=== PATIENT | female | born 1945 | race Hispanic/Latino ===

== ENCOUNTER 2019-08-12 17:34 | Inpatient (IN) | payer SELFPAY ==
[~2019-08-12 17:34] MED LIST: Iopamidol-370 76% 500 ML 1 ML ONE
[2019-08-12 18:10] LABS: #Basophils 0.1 thou/uL (0.0-0.2); #Eosinphils 0.1 thou/uL (0.0-0.7); #Lymphocytes 1.8 thou/uL (1.20-3.40); #Monocytes 0.9 thou/uL (0.11-0.59); #Neutrophils 6.6 thou/uL (1.40-6.50); %Basophils 0.7 % (0.0-1.0); %Eosinophils 1.2 % (0.0-10.0); %Neutrophils 70.1 % (42.0-75.0); Hemoglobin 11.9 g/dL (12.0-16.0); Mean Corpuscular HGB CONC 33.1 g/dL (32.0-36.0); Mean Corpuscular Volume 87.6 fL (78.0-98.0); Mean Platelet Volume 6.3 fL (7.4-10.4); Platelet Count 301 thou/uL (130-400); RBC Distribution Width 13.5 % (11.5-14.5); Red Blood Cell (RBC) Count 4.11 mill/uL (4.20-5.40); White Blood Cell (WBC) Count 9.4 thou/uL (4.8-10.8)
--- NOTE | 2019-08-12 18:49 | ULT ---
US Gallbladder RUQ History: Right upper quadrant pain Comparison: None. Findings: Real-time grayscale and color evaluation right upper quadrant was performed. Pancreas aorta and IVC are obscured. Liver measures 13.3 cm in length. Gallbladder wall thickness is normal. Sonographic Angelo sign is negative. Common bile duct is normal measuring 3 mm. Cholelithiasis without cholecystitis. No pericholecystic fluid. Portal vein is patent with antegrade flow. Right kidney measures 8.3 x 3.9 x 5 cm without mass hydronephrosis or abnormal calcifications. Impression: Cholelithiasis without cholecystitis.
[2019-08-12] MEDS ORDERED: Morphine 4 MG/ML VIAL ONE (18:53)
[2019-08-12 18:58] LABS: ALT (SGPT) 42 U/L (8-55); AST (SGOT) 104 U/L (5-34); Albumin 3.8 g/dL (3.4-4.8); Alkaline Phosphatase 175 U/L (40-110); Anion Gap 13 mmol/L (10-20); BUN (Urea Nitrogen) 16 mg/dL (9.8-20.1); Bilirubin, Total 1.1 mg/dL (0.2-1.2); Calc. Creatinine Clearance 0 mL/min (70-130); Calcium 9.1 mg/dL (7.8-10.44); Carbon Dioxide 22 mmol/L (23-31); Chloride 107 mmol/L (98-107); Estimated GFR-MDRD 68; Globulin 2.9 g/dL (2.4-3.5); Glucose 88 mg/dL (83-110); Potassium 4.2 mmol/L (3.5-5.1); Protein, Total 6.7 g/dL (6.0-8.3); Sodium 138 mmol/L (136-145)
[2019-08-12] MEDS ORDERED: Glycopyrrolate 0.2 MG/ML 5 ML SYRINGE SLOW IVP SCH (19:15)
[2019-08-12 19:37] LABS: Bacteria/HPF None Seen HPF (None Seen); Bilirubin Negative (Negative); Blood, Urine 1+ (Negative); Clarity Clear (Clear); Glucose, Urine (Dipstick) Normal (Negative); Leukocyte Negative Leu/uL (Negative); Nitrite Negative (Negative); Protein, Urine (Dipstick) Negative (Neg-Trace); Squamous Epithelial None Seen HPF (0-3); Urobilinogen Normal mg/dL (Less than 2); WBC/HPF 0-3 HPF (0-3)
--- NOTE | 2019-08-12 19:37 | CT ---
CT Abdomen Pelvis Trauma History: Abdominal pain Comparison: None. Findings: Lung bases are clear. No pericardial effusion. There is motion limiting evaluation the upper abdomen. Normal proximal small bowel rotation. No intra hepatic or extra hepatic biliary dilatation. Spleen and pancreas unremarkable. The aortic contour is nonaneurysmal. Mild atherosclerotic plaque there is a superior mesenteric artery origin. Mild degenerative changes of the facet joints lower lumbar spine. No hydronephrosis. The appendix is visualized and is normal. No dilated loops of large or small bowel. No retroperitoneal periaortic adenopathy. Impression: No acute inflammatory process within the abdomen or pelvis.
[2019-08-12] MEDS ORDERED: Ondansetron PF 4 MG/2 ML Vial IVP PRN (21:27)
[2019-08-12] MEDS ORDERED: Ondansetron ODT 4 MG TAB SL PRN (21:27)
[2019-08-12] MEDS ORDERED: Morphine 2 MG/ML SYRINGE SLOW IVP PRN (21:28)
[2019-08-12] MEDS ORDERED: Glycopyrrolate 0.2 MG/ML 5 ML SYRINGE SLOW IVP PRN (21:29)
[2019-08-12] MEDS ORDERED: Sodium Chloride 0.9% 1,000 ML IV SCH (21:30)
[2019-08-13 03:26] VITALS: BMI 25.1
[2019-08-13] MEDS ORDERED: Promethazine HCl 25 MG/ML VIAL SLOW IVP PRN ×2 (09:59→11:37)
[2019-08-13] MEDS ORDERED: Promethazine HCl 25 MG/ML VIAL IM PRN ×3 (09:59→12:28)
[2019-08-13] MEDS ORDERED: Ondansetron HCl/PF 4 MG/2 ML Vial IVP PRN ×2 (09:59→11:37)
[2019-08-13] MEDS ORDERED: cefOXitin 2 GM VIAL ONE (10:08)
[2019-08-13] MEDS ORDERED: Sodium Chloride 0.9% 100 ML ONE (10:08)
[2019-08-13] MEDS ORDERED: Iothalamate Meglumine 60% 50 ML VIAL FS ONE (10:10)
[2019-08-13] MEDS ORDERED: Bupivacaine PF 0.5% 30 ML VIAL ONE (10:10)
[2019-08-13] MEDS ORDERED: Fentanyl 100 MCG/2 ML VIAL ONE ×2 (10:12→11:43)
[2019-08-13] MEDS ORDERED: PROPOFOL 200 MG/20 ML VIAL ONE (10:16)
[2019-08-13] MEDS ORDERED: Rocuronium Bromide 10 MG/ML (10ML VIAL) ONE (10:16)
[2019-08-13] MEDS ORDERED: Ondansetron PF 4 MG/2 ML Vial ONE (10:16)
[2019-08-13] MEDS ORDERED: Lidocaine 1% PF 5 ML VIAL ONE (10:16)
--- NOTE | 2019-08-13 11:45 | OP ---
DATE OF PROCEDURE: 08/13/2019 PREOPERATIVE DIAGNOSIS: Acute cholecystitis with elevated liver function test. POSTOPERATIVE DIAGNOSIS: Acute cholecystitis with elevated liver function test. PROCEDURE PERFORMED: Laparoscopic cholecystectomy with intraoperative cholangiogram. ANESTHESIA: General. ESTIMATED BLOOD LOSS: Minimal. COMPLICATIONS: None. SPECIMEN: Gallbladder. FINDINGS: Common duct stone. DESCRIPTION OF PROCEDURE: The patient was taken to the operating room and laid supine on the operating room. After general anesthetic was obtained, the abdomen was prepped and draped in a sterile fashion. A curved incision was made below the umbilicus, cautery dissected down to and score the fascia. Abdominal cavity was entered bluntly using a Herminia clamp. Holding stitch of PDS was placed on each side of the fascia. Cheyanne trocar was placed. High-flow pneumoperitoneum was obtained. Upper midline 5-mm port, two right upper quadrant 5-mm ports were placed under direct visualization. Gallbladder was retracted from gallbladder fossa. The peritoneum was opened anteriorly and posteriorly. Critical view of triangle was seen showing only the cystic duct and cystic artery branching medial to lateral. Clip was placed on the cystic duct. A ductotomy was made proximal to that. A cholangiocatheter was brought in through a separate incision and placed in the cystic duct and a cholangiogram was performed, which shows contrast flow into the duodenum, but there was a distal common bile duct stone, it was large. Common duct was dilated. Cholangiocatheter was removed and 2 clips were placed proximally on the cystic duct. Cystic duct cut using laparoscopic scissors. Cystic artery was taken using 2 clips proximally, one clip distally, cut using laparoscopic scissors. Cautery was used to dissect the gallbladder out of the gallbladder fossa. Gallbladder was placed in an Endo Catch bag and brought out through the Cheyanne. All port sites were infiltrated using local anesthetic. All ports were removed under camera visualization. Pneumoperitoneum was let down. PDS used to close the fascial defect below the umbilicus. All incisions were irrigated and closed using 4-0 Monocryl and Dermabond. The patient was sent to Recovery in stable condition. All instrument counts, needle counts, and lap counts were correct. Job ID: [id number]
[2019-08-13] MEDS ORDERED: traMADol HCl 50 MG TAB PO PRN (12:28)
[2019-08-13] MEDS ORDERED: Morphine 4 MG/ML VIAL SLOW IVP PRN (12:28)
[2019-08-13] MEDS ORDERED: Dextrose 5% in Water 1,000 ML IV PRN (12:28)
[2019-08-13] MEDS ORDERED: Ondansetron PF 4 MG/2 ML Vial IVP PRN (12:28)
[2019-08-13] MEDS ORDERED: Morphine 2 MG/ML SYRINGE SLOW IVP PRN (12:28)
[2019-08-13] MEDS ORDERED: hydrALAZINE 20 MG/ML VIAL SLOW IVP PRN (12:28)
[2019-08-13] MEDS ORDERED: Dextrose 50% Abboject 50 ML SYRINGE SLOW IVP PRN (12:28)
[2019-08-13] MEDS ORDERED: Calcium Carbonate 500 MG ChewTAB PO PRN (12:28)
[2019-08-13] MEDS ORDERED: Mag-Al 1200 mg/1200 mg/30 ML UDCUP PO PRN (12:28)
--- NOTE | 2019-08-13 12:28 | HP ---
CHIEF COMPLAINT: Upper abdominal pain. HISTORY OF PRESENT ILLNESS: This is a 74-year-old female with a history of pain in her upper abdomen, described as 8/10 and sharp, occurred last night after a greasy meal. Never had this pain before. MEDICAL HISTORY: Hypercholesterolemia, hypertension. PAST SURGICAL HISTORY: Denies. MEDICATIONS: Medicines taken daily, none. ALLERGIES: NO KNOWN DRUG ALLERGIES. SOCIAL HISTORY: No smoking, alcohol, or other drugs. REVIEW OF SYSTEMS: Ten-system review of systems is otherwise negative unless described above. PHYSICAL EXAMINATION: HEART: Regular rate and rhythm. ABDOMEN: Soft, tender right upper quadrant. EXTREMITIES: No ischemia or edema to extremities. DIAGNOSTIC DATA: Liver tests were minimally elevated. Ultrasound shows gallstones. ASSESSMENT: Acute cholecystitis with elevated liver tests. PLAN: Laparoscopic cholecystectomy with intraoperative cholangiogram. Risks, benefits, and alternatives were discussed. She gives consent and we will do this today. Job ID: [id number]
--- NOTE | 2019-08-13 13:15 | RAD ---
OPERATIVE CHOLANGIOGRAM: Date: 08/13/19 HISTORY: Intraoperative film. FINDINGS: A single intraoperative film shows the presence of a filling defect at the level of the ampulla suspi cious for a stone. There is emptying into the duodenum. IMPRESSION: Findings suspicious for an ampullary ductal stone. POS: CHELSEA
[2019-08-13] MEDS: Sodium Chloride 0.9% 1,000 ML IV SCH (13:47)
[2019-08-13] MEDS: HYDROcodone/Acetaminophen 7.5/325 mg Tablet PO PRN ×2 (15:17→21:16)
--- NOTE | 2019-08-13 16:25 | CON ---
DATE OF CONSULTATION: 08/13/2019 REQUESTING PHYSICIAN: Roland Huynh MD REASON FOR CONSULTATION: Positive intraoperative cholangiogram. HISTORY OF PRESENT ILLNESS: Parris Dean is a 74-year-old woman with no significant past surgical history, who had the acute onset of upper abdominal pain and nausea last night. She presented to the emergency department and was found to have some elevation in AST and alkaline phosphatase, with CT imaging unremarkable and ultrasound imaging showing cholelithiasis. Dr. Huynh took her for laparoscopic cholecystectomy today, which went well and was uncomplicated, but intraoperative cholangiogram demonstrated a large filling defect in the distal common bile duct at the level of the ampulla, images viewed by myself as well. At this time, the patient is doing okay, recovering from surgery, but continues to have pain in the right upper quadrant. She has been afebrile. There has been no prior history of liver or gallbladder illness. Lipase is normal. REVIEW OF SYSTEMS: Full review of systems including constitutional; head, eyes, ears, nose, and throat; GI; ; cardiovascular; respiratory; musculoskeletal; neurologic systems is negative except as noted in the HPI. PAST MEDICAL HISTORY: 1. Hypertension. 2. Hyperlipidemia. PAST SURGICAL HISTORY: Laparoscopic cholecystectomy earlier today on 08/13/2019. ALLERGIES: NO KNOWN DRUG ALLERGIES. OUTPATIENT MEDICATIONS: None. INPATIENT MEDICATIONS: 1. Morphine p.r.n. 2. Zofran p.r.n. 3. [place] p.r.n. SOCIAL HISTORY: No smoking, alcohol, or drug use. FAMILY HISTORY: Noncontributory. PHYSICAL EXAMINATION: VITAL SIGNS: Temperature 98.1, blood pressure 107/55, pulse 57, and 98% oxygen saturation on room air. GENERAL: A 74-year-old woman lying in bed comfortably, in no distress. SKIN: No jaundice. No rashes were palpable. EYES: No scleral icterus. Extraocular movements intact. ENT: Mucous membranes moist. No oral lesions. LYMPHATIC: No submandibular or supraclavicular lymphadenopathy. NECK: Thyroid nontender to palpation. HEART: Regular rate and rhythm. LUNGS: Clear to auscultation bilaterally. ABDOMEN: Bowel sounds hypoactive. Soft. Some tenderness to palpation in the right upper quadrant, but no guarding or rebound tenderness. Surgical incisions look good. EXTREMITIES: No peripheral edema. NEUROLOGIC: Cranial nerves 2 through 12 intact bilaterally. VESSELS: Radial pulses 2+ bilaterally. No focal deficits. LABORATORY STUDIES: WBC 9.4, hemoglobin 11.9, and platelets 301. Urinalysis negative. Lipase 71. BUN 16 and creatinine 0.82. Total bilirubin 1.1, alkaline phosphatase 175, AST 104, ALT 42, and albumin 3.8. IMAGING STUDIES: CT of the abdomen and pelvis yesterday demonstrated no acute processes. Ultrasound of the abdomen yesterday demonstrated cholelithiasis with common bile duct 3 mm. Intraoperative cholangiogram performed earlier today demonstrates a large filling defect at the level of the ampulla. ASSESSMENT AND PLAN: 1. Choledocholithiasis. 2. Right upper quadrant pain. I had a long discussion with the patient and family who is able to translate for her regarding the intraoperative cholangiogram findings. She has choledocholithiasis based on imaging, and ERCP is warranted. We will plan for the procedure tomorrow. Discussed the benefits and also risks of the procedure including post endoscopic retrograde cholangiopancreatography pancreatitis. She desires to proceed. We will plan for ERCP tomorrow. Please have her n.p.o. after midnight. Thank you for the consultation. Please call anytime with questions or concerns. Job ID: [id number]
[2019-08-13] MEDS: Famotidine 20 MG TAB PO SCH (20:35)
[2019-08-13] MEDS: Famotidine/PF 20 mg/2ml Vial SLOW IVP SCH (20:36)
[2019-08-14 05:18] LABS: #Eosinphils 0.1 thou/uL (0.0-0.7); #Lymphocytes 1.5 thou/uL (1.20-3.40); #Monocytes 0.9 thou/uL (0.11-0.59); #Neutrophils 6.6 thou/uL (1.40-6.50); %Basophils 0.3 % (0.0-1.0); %Eosinophils 0.8 % (0.0-10.0); %Lymphocytes 16.9 % (21.0-51.0); %Monocytes 9.6 % (0.0-10.0); %Neutrophils 72.3 % (42.0-75.0); Hemoglobin 10.8 g/dL (12.0-16.0); Mean Corpuscular HGB CONC 32.7 g/dL (32.0-36.0); Mean Corpuscular Hemoglobin 28.8 pg (27.0-31.0); Mean Corpuscular Volume 87.8 fL (78.0-98.0); Mean Platelet Volume 6.3 fL (7.4-10.4); Platelet Count 258 thou/uL (130-400); RBC Distribution Width 13.3 % (11.5-14.5); Red Blood Cell (RBC) Count 3.77 mill/uL (4.20-5.40); White Blood Cell (WBC) Count 9.1 thou/uL (4.8-10.8)
[2019-08-14] MEDS: Sodium Chloride 0.9% 1,000 ML IV SCH ×2 (05:34→15:41)
[2019-08-14 05:37] LABS: ALT (SGPT) 59 U/L (8-55); AST (SGOT) 66 U/L (5-34); Albumin 3.1 g/dL (3.4-4.8); Alkaline Phosphatase 157 U/L (40-110); Anion Gap 8 mmol/L (10-20); BUN (Urea Nitrogen) 11 mg/dL (9.8-20.1); Bilirubin, Total 0.9 mg/dL (0.2-1.2); Calc. Creatinine Clearance 69 mL/min (70-130); Calcium 8.2 mg/dL (7.8-10.44); Carbon Dioxide 24 mmol/L (23-31); Chloride 109 mmol/L (98-107); Estimated GFR-MDRD 89; Globulin 2.5 g/dL (2.4-3.5); Glucose 88 mg/dL (83-110); Lipase 16 U/L (8-78); Potassium 3.5 mmol/L (3.5-5.1); Protein, Total 5.6 g/dL (6.0-8.3); Sodium 137 mmol/L (136-145)
[2019-08-14] MEDS: HYDROcodone/Acetaminophen 7.5/325 mg Tablet PO PRN (07:51)
[2019-08-14] MEDS: Famotidine/PF 20 mg/2ml Vial SLOW IVP SCH ×2 (07:53→20:12)
[2019-08-14] MEDS: Famotidine 20 MG TAB PO SCH ×2 (08:02→20:10)
[2019-08-14] MEDS ORDERED: Ondansetron PF 4 MG/2 ML Vial ONE ×2 (09:39→10:31)
[2019-08-14] MEDS ORDERED: Ondansetron HCl/PF 4 MG/2 ML Vial IVP PRN ×2 (09:56→11:59)
[2019-08-14] MEDS ORDERED: cefTRIAXone\\ROCEPHIN 2 GM VIAL ONE (10:04)
[2019-08-14] MEDS ORDERED: Sodium Chloride 0.9% 100 ML ONE (10:05)
--- NOTE | 2019-08-14 10:07 | PDOC.GSPN ---
Surgery Progress Note: Subj - Subjective Narrative: Seen in preop holding. No complaints. Surgery Progress Note: Obj - Vital signs Vital signs: Vital Signs - Most Recent Temp Pulse Resp BP Pulse Ox 98.9 F 65 16 115/65 92 L 08/14/19 02:52 08/14/19 02:52 08/14/19 02:52 08/14/19 02:52 08/14/19 02:52 - Physical Exam General: no distress Cardiovascular: regular rate and rhythm Respiratory: clear to auscultation Abdomen: soft, appropriately tender Wound: healing well Surgery Progress Note: Results - Labs Result Diagrams: 08/14/19 05:01 08/14/19 05:01 Lab results: Laboratory Results - last 24 hr 08/14/19 08/14/19 05:01 05:01 WBC 9.1 RBC 3.77 L Hgb 10.8 L Hct 33.1 L MCV 87.8 MCH 28.8 MCHC 32.7 RDW 13.3 Plt Count 258 MPV 6.3 L Neutrophils % 72.3 Lymphocytes % 16.9 L Monocytes % 9.6 Eosinophils % 0.8 Basophils % 0.3 Neutrophils # 6.6 H Lymphocytes # 1.5 Monocytes # 0.9 H Eosinophils # 0.1 Basophils # 0.0 Sodium 137 Potassium 3.5 Chloride 109 H Carbon Dioxide 24 Anion Gap 8 L BUN 11 Creatinine 0.65 Estimated GFR (MDRD) 89 Glucose 88 Calcium 8.2 Total Bilirubin 0.9 AST 66 H ALT 59 H Alkaline Phosphatase 157 H Serum Total Protein 5.6 L Albumin 3.1 L Globulin 2.5 Albumin/Globulin Ratio 1.2 Lipase 16 Surgery Progress Note: A/P - Problem (1) Cholecystitis Current Visit: Yes Code(s): K81.9 - CHOLECYSTITIS, UNSPECIFIED Status: Acute (2) Choledocholithiasis Current Visit: Yes Code(s): K80.50 - CALCULUS OF BILE DUCT W/O CHOLANGITIS OR CHOLECYST W/O OBST Status: Acute - Plan Plan: POD 1 lap alena -ERCP today -Likely home tomorrow. -Will send rx's to [facility]
[2019-08-14] MEDS ORDERED: Succinylcholine Chloride 20 MG/ML 10 ml SYRINGE FS ONE (10:31)
[2019-08-14] MEDS ORDERED: Dexamethasone 20 MG/5 ML VIAL ONE (10:31)
[2019-08-14] MEDS ORDERED: Lidocaine 1% PF 5 ML VIAL ONE (10:31)
[2019-08-14] MEDS ORDERED: PROPOFOL 200 MG/20 ML VIAL ONE (10:31)
[2019-08-14] MEDS ORDERED: Metoclopramide HCl 10 MG/2 ML VIAL ONE (10:31)
[2019-08-14] MEDS ORDERED: ePHEDrine/0.9% NaCl/PF SYRINGE 50 mg/10 ml ONE (10:31)
[2019-08-14] MEDS ORDERED: Iothalamate Meglumine 60% 50 ML VIAL FS ONE (10:34)
[2019-08-14] MEDS ORDERED: Indomethacin 50 MG SUPP ONE (10:34)
[2019-08-14] MEDS ORDERED: Fentanyl 100 MCG/2 ML VIAL ONE (10:49)
[2019-08-14] MEDS ORDERED: Famotidine/PF 20 mg/2ml Vial ONE (10:49)
[2019-08-14] MEDS ORDERED: Promethazine HCl 25 MG/ML VIAL IM PRN (11:59)
[2019-08-14] MEDS ORDERED: Promethazine HCl 25 MG/ML VIAL SLOW IVP PRN (11:59)
--- NOTE | 2019-08-14 13:56 | OP ---
DATE OF PROCEDURE: 08/14/2019 PROCEDURE PERFORMED: Endoscopic retrograde cholangiopancreatography with sphincterotomy and stone extraction. PREMEDICATION: Given by Anesthesiology Department. PREPROCEDURE DIAGNOSES: 1. Choledocholithiasis, on intraoperative cholangiogram. 2. Status post cholecystectomy. POSTPROCEDURE DIAGNOSIS: Choledocholithiasis. DESCRIPTION OF PROCEDURE: Written consents were obtained prior to procedure. After adequate sedation, the side-viewing endoscope was advanced down the stomach through the pylorus into the duodenum. The ampulla was visualized and appeared normal. Selective cannulation was performed using a papillotome with a 0.035 guide assist. The guidewire was able to pass into the common bile duct. The injection contrast showed a single filling defect with a uniformly dilated common bile duct that measured approximately 10 mm. The intrahepatic duct opacified and appeared normal. A sphincterotomy was performed at 12 o'clock position with good hemostasis. A multi-stage 9 to 12 mm oval balloon was then used to sweep the duct with extraction of a single stone. Repeat cholangiogram was performed and was normal. There was good drainage after the catheter was removed. The instrument was then removed. The patient tolerated the procedure well. ASSESSMENT: Choledocholithiasis, status post sphincterotomy and stone extraction. RECOMMENDATIONS: Transferred back to floor and restart diet. Job ID: [id number]
[2019-08-15] MEDS: Sodium Chloride 0.9% 1,000 ML IV SCH (06:51)
[2019-08-15] MEDS: HYDROcodone/Acetaminophen 7.5/325 mg Tablet PO PRN (07:54)
[2019-08-15] MEDS: Famotidine 20 MG TAB PO SCH (07:55)
[2019-08-15] MEDS: Famotidine/PF 20 mg/2ml Vial SLOW IVP SCH (07:57)
[2019-08-15 11:31] VITALS: BP 112/60; TEMP 98.1
--- NOTE | 2019-08-15 16:15 | DIS ---
DATE OF ADMISSION: 08/12/2019 DATE OF DISCHARGE: 08/15/2019 ADMISSION DIAGNOSES: 1. Acute cholecystitis with elevated liver function tests. 2. Choledocholithiasis. PROCEDURES PERFORMED: Laparoscopic cholecystectomy by Lino. Endoscopic retrograde cholangiopancreatography by Dr. Souza. CONDITION ON DISCHARGE: Improved. STAFF: Roland Huynh MD HOSPITAL COURSE: Postop, the patient was doing well. She did undergo ERCP for common bile duct stone. On the day of discharge, she is doing well. Prescriptions of [place] and Zofran sent to [facility]. She will follow up with me in 2 weeks. Job ID: [id number]
== END 2019-08-15 13:26 | disposition home or self-care (01) | DRG 419 ==
LOC: ERS 17:34 → SJJU 19:17 → OBSVTOIN 19:17
PROVIDERS: ADMIT Surgery; ATTEND Surgery
PROC: 0FT44ZZ Resection of Gallbladder, Percutaneous Endoscopic Approach (ICD-10-PCS; principal; 2019-08-13)
PROC: BF131ZZ Fluoroscopy of Gallbladder and Bile Ducts using Low Osmolar Contrast (ICD-10-PCS; 2019-08-13)
PROC: 0FC98ZZ Extirpation of Matter from Common Bile Duct, Via Natural or Artificial Opening Endoscopic (ICD-10-PCS; 2019-08-14)
PROC: 0F798ZZ Dilation of Common Bile Duct, Via Natural or Artificial Opening Endoscopic (ICD-10-PCS; 2019-08-14)
PROC: BF101ZZ Fluoroscopy of Bile Ducts using Low Osmolar Contrast (ICD-10-PCS; 2019-08-14)
DX: K80.42 Calculus of bile duct with acute cholecystitis without obstruction (principal); I10 Essential (primary) hypertension; E78.5 Hyperlipidemia, unspecified; F17.200 Nicotine dependence, unspecified, uncomplicated; M19.91 Primary osteoarthritis, unspecified site; Z79.899 Other long term (current) drug therapy; Z90.710 Acquired absence of both cervix and uterus
CPT/HCPCS: 36415; 47532; 74177; 74330; 76705; 80053; 81003; 81015; 83690; 85025; 88304; 96361; 96374; J0131; J0690; J0694; J0696; J1100; J2001; J2270; J2405; J2704; J2765; J3010; J3490; Q9967; S0020; S0028